=== PATIENT | male | born 1970 | race Caucasian/White ===

== ENCOUNTER 2022-01-03 23:16 | Emergency (ER) | payer BC ==
[~2022-01-03] VITALS: Ht 193 cm; Wt 83.9 kg
== END 2022-01-04 03:09 | disposition home or self-care (01) ==
LOC: ER 23:16
DX: R09.89 Other specified symptoms and signs involving the circulatory and respiratory systems (principal); T17.208A Unspecified foreign body in pharynx causing other injury, initial encounter; X58.XXXA Exposure to other specified factors, initial encounter; Y93.9 Activity, unspecified; Y92.9 Unspecified place or not applicable; Y99.9 Unspecified external cause status